=== PATIENT | male | born 1980 | race Caucasian/White ===

== ENCOUNTER 2018-08-15 13:49 | Inpatient (IN) | payer MEDICARE, OTHER ==
--- NOTE | 2018-08-15 14:15 | ED ---
Syncope/Near Syncope - HPI Summary HPI Summary: This pt is a 38 y/o male presenting to [facility] c/o witnessed syncopal episode today. Pt reports he had woken up to take his son to speech therapy today. The next thing he notes he was sitting down on his bed. [facility] who no longer works there. He states he was confused and disoriented. Currently pt still feels he is "on the verge of passing out," lightheaded, with dry mouth, and very anxious. He describes "feeling out of it." Denies headache. He takes medications for pain, psych, and cholesterol (Atorvastatin). - History Of Current Complaint Chief Complaint: EDNeurologicalDeficit Hx Obtained From: Patient Onset/Duration: Sudden Onset Context: Witnessed, Loss Of Consciousness Aggravating Factor(s): Nothing Alleviating Factor(s): Nothing Associated Signs And Symptoms: Lightheadedness, Other - POSITIVE: anxious, dry mouth, confusion. NEGATIVE: headache. - Allergies/Home Medications Allergies/Adverse Reactions: Allergies Allergy/AdvReac Type Severity Reaction Status Date / Time No Known Allergies Allergy Verified 08/15/18 18:14 Home Medications: Home Medications Atorvastatin* [Lipitor*] 20 mg PO DAILY 08/15/18 [History Confirmed 08/15/18] Cetirizine* [ZyrTEC 10 MG TAB*] 10 mg PO BEDTIME 08/15/18 [History Confirmed 09/28] Cyclosporine 0.05% OPHTH (NF) [Restasis 0.05% OPHTH] 1 drop BOTH EYES BID [History Confirmed 08/15/18] DULoxetine DR CAP* [Cymbalta CAP*] 30 mg PO BEDTIME 08/15/18 [History Confirmed 08/15/18] DULoxetine DR CAP* [Cymbalta CAP*] 60 mg PO BEDTIME 08/15/18 [History Confirmed 08/15/18] Methylphenidate TAB* [Ritalin TAB*] 20 mg PO DAILY 08/15/18 [History Confirmed 08/15/18] Oxybutynin TAB* [Ditropan TAB*] 15 mg PO TID 08/15/18 [History Confirmed ] Prazosin CAP* [Minipress CAP*] 20 mg PO DAILY 08/15/18 [History Confirmed ] QUEtiapine TAB* [Seroquel 300 MG TAB*] 150 mg PO BEDTIME 08/15/18 [History Confirmed 08/15/18] SUMAtriptan TAB* [Imitrex TAB*] 100 mg PO SEE INSTRUCTIONS PRN 08/15/18 [ History Confirmed 08/15/18] PMH/Surg Hx/FS Hx/Imm Hx Endocrine/Hematology History: Denies: Hx Diabetes Cardiovascular History: Reports: Hx Hypercholesterolemia Musculoskeletal History: Reports: Hx Back Problems - low back injury, Other Musculoskeletal History - cervical spondylosis Neurological History: Reports: Other Neuro Impairments/Disorders - TBI Psychiatric History: Reports: Hx Post Traumatic Stress Disorder Infectious Disease History: No Infectious Disease History: Denies: Traveled Outside the [place] in Last 30 Days - Family History Known Family History: Negative: Cardiac Disease, Hypertension - Social History Alcohol Use: Rare Substance Use Type: Reports: None Smoking Status (MU): Never Smoked Tobacco Review of Systems Negative: Fever, Chills ENT: Other - POS: dry mouth Neurological: Other - POS: confusion, lightheadedness Positive: Syncope. Negative: Headache Positive: Anxious All Other Systems Reviewed And Are Negative: Yes Physical Exam - Summary Physical Exam Summary: VITAL SIGNS: Reviewed. GENERAL: Patient is a well-developed and nourished male who is lying comfortable in the stretcher. Patient is not in any acute respiratory distress. HEAD AND FACE: No signs of trauma. No ecchymosis, hematomas or skull depressions. No sinus tenderness. EYES: PERRLA, EOMI x 2, No injected conjunctiva, no nystagmus. EARS: Hearing grossly intact. Ear canals and tympanic membranes are within normal limits. MOUTH: Oropharynx within normal limits. NECK: Supple, trachea is midline, no adenopathy, no JVD, no carotid bruit, no c- spine tenderness, neck with full ROM. CHEST: Symmetric, no tenderness at palpation LUNGS: Clear to auscultation bilaterally. No wheezing or crackles. CVS: Regular rate and rhythm, S1 and S2 present, no murmurs or gallops appreciated. ABDOMEN: Soft, non-tender. No signs of distention. No rebound no guarding, and no masses palpated. Bowel sounds are normal. EXTREMITIES: FROM in all major joints, no edema, no cyanosis or clubbing. NEURO: Alert and oriented x 3. No acute neurological deficits. Speech is normal and follows commands. SKIN: Dry and warm GCS: 15 Triage Information Reviewed: Yes Vital Signs On Initial Exam: Initial Vitals Temp Pulse Resp BP Pulse Ox 97.9 F 80 20 138/79 97 08/15/18 13:55 08/15/18 13:55 08/15/18 13:55 08/15/18 13:55 08/15/18 13:55 Vital Signs Reviewed: Yes Diagnostics - Vital Signs Vital Signs Temp Pulse Resp BP Pulse Ox 08/15/18 13:55 97.9 F 80 20 138/79 97 - Laboratory Result Diagrams: 08/15/18 14:17 08/15/18 14:17 Lab Statement: Any lab studies that have been ordered have been reviewed, and results considered in the medical decision making process. - Radiology Chest XR Radiology Interpretation Completed By: Radiologist Summary of Radiographic Findings: IMPRESSION: No evidence for acute intrathoracic disease. Dr. Hernández has reviewed this report. Brain MRI Radiology Interpretation Completed By: Radiologist Summary of Radiographic Findings: Small acute ischemic infarct at the RIGHT thalamus. ED physician reviewed radiology report. - CT Brain CT CT Interpretation Completed By: Radiologist Summary of CT Findings: IMPRESSION: No evidence for acute intracranial abnormality. Dr. Hernández has reviewed this report. - EKG 14:11 Cardiac Rate: NL - at 78 bpm EKG Rhythm: Sinus Rhythm Summary of EKG Findings: No ST elevations. National Institutes Of Health - NIH Scale Level of Consciousness: Alert/Keenly Responsive Ask Patient the Month and His/Her Age: Both Correct Ask Pt to Open/Close Eyes and Internal Review And Audit Compliance/Release Non-Paretic Hand: Both Correctly Best Gaze (Only Horizontal Eye Movement): Normal Visual Field Testing: No Visual Loss Facial Paresis-Pt to Smile & Close Eyes or Grimace Symmetry: Normal/Symmetrical Motor Function - Right Arm: No Drift-Holds 10 Seconds Motor Function - Left Arm: No Drift-Holds 10 Seconds Motor Function - Right Leg: No Drift-Holds 10 Seconds Motor Function - Left Leg: No Drift-Holds 10 Seconds Limb Ataxia-Must be out of Proportion to Weakness Present: Absent Sensory (Use Pinprick to Test Arms/Legs/Trunk/Face): Normal Best Language (Describe Picture, Name Items): No Aphasia Dysarthria (Read Several Words): Normal Extinction and Inattention: No Abnormality Total Score: 0 Course/Dx Assessment/Plan: Patient is a 38-year-old male who presents to the patient department with a chief complaint of not feeling well and having a syncopal episode. Initially the physical exam the patient has no neurological focal deficits. The NIH score is equal to 0, and the [place] Coma Scale is equal to 15. Test results without any significant abnormality except for creatinine 1.26 , glucose 111 and magnesium 1.8. The patient was given magnesium by mouth. Troponin is 0.00. Head CT negative for an acute intracranial pathology. EKG shows normal sinus rhythm without any ST elevation. Chest x-ray impression: no evidence for acute intrathoracic disease. I discussed his case with Dr. Akers recommends for the patient to get an MRI of the brain. Brain MRI impression: Small acute ischemic infarct at the right thalamus. At this point I discussed again the case with Dr. Akers who recommends for the patient to get aspirin and Plavix. He reports that the patient is not a candidate for TPA since the patients NIH score is equal to 0. At this time I discussed my physical exam and findings with Dr. Brink from the hospital services was accepted the patient for admission. The patient is hemodynamically stable alert and oriented 3. - Diagnoses Provider Diagnoses: Ischemic cerebrovascular accident (CVA) - Physician Notifications Discussed Care of Patient With: Markie Akers Time Discussed With Above Provider: 16:08 Instructed by Provider To: Other - Order an MRI. Dr. Akers or Dr. Russell will consult either tonight or tomorrow. At 16:[address] Brink who will come down for a consult. At 17:[address] Akers who said the pt is not a TPA candidate due to his NIH of 0. He will come to the ED to consult the pt. At 18: 05 Dr. Brink accepts for admission. - Critical Care Time Critical Care Time: 75-104 min - CCT is exclusive of separately billable procedures. Discharge - Sign-Out/Discharge Documenting (check all that apply): Patient Departure - Admit Patient Received Moderate/Deep Sedation with Procedure: No - Discharge Plan Condition: Stable Disposition: ADMITTED TO [facility] Referrals: Melinda Felix [Primary Care Provider] - - Billing Disposition and Condition Condition: STABLE Disposition: Admitted to [facility] - Attestation Statements Document Initiated by Scribe: Yes Documenting Scribe: Uma Campbell Provider For Whom Scribe is Documenting (Include Credential): Margarito Hernández MD Scribe Attestation: I, Uma Campbell, scribed for Margarito Hernández MD on 08/15/18 at 1848. Scribe Documentation Reviewed: Yes Provider Attestation: The documentation as recorded by the yuneUma accurately reflects the service I personally performed and the decisions made by me, Margarito Hernández MD Status of Scribe Document: Viewed
[2018-08-15 14:26] LABS: ABS Basophils 0 10^3/ul (0-0.2); ABS Eosinophils 0.1 10^3/ul (0-0.6); ABS Lymphocytes 1.7 10^3/ul (1.0-4.8); ABS Monocytes 0.5 10^3/ul (0-0.8); ABS Neutrophils 3.8 10^3/ul (1.5-7.7); ABS Nucleated RBC 0 10^3/ul; Hematocrit 44 % (36-46); Hemoglobin 14.4 g/dL (14.0-18.0); Lymphocyte % 27.8 %; Mean Corpuscular HGB Conc 33 g/dL (31-36); Mean Corpuscular Hemoglobin 30 pg (27-31); Mean Corpuscular Volume 90 fL (80-94); Mean Platelet Volume 8.2 fL (7.4-10.4); Nucleated Red Blood Cells % 0.1; Platelet Count 188 10^3/uL (150-450); Red Blood Count 4.84 10^6 /uL (4.18-5.48); Red Cell Distribution Width 14 % (10.5-15)
[2018-08-15 14:42] LABS: ALT 28 U/L (7-52); AST 25 U/L (13-39); Albumin 4.3 g/dL (3.2-5.2); Albumin/Globulin Ratio 1.6 (1-3); Alkaline Phosphatase 54 U/L (34-104); Anion Gap 7 mmol/L (2-11); BUN/Creatinine Ratio 12.7 (8-20); Blood Urea Nitrogen 16 mg/dL (6-24); CO2 Carbon Dioxide 27 mmol/L (22-32); Calcium 9.4 mg/dL (8.6-10.3); Chloride 103 mmol/L (101-111); EGFR African American 77.1 (>60); EGFR Non-African American 63.7 (>60); Globulin 2.7 g/dL (2-4); Glucose 108 mg/dL (70-100); Magnesium 1.8 mg/dL (1.9-2.7); Sodium 137 mmol/L (135-145)
[2018-08-15 14:46] LABS: BNP 9 pg/mL (<=100)
[2018-08-15 15:13] LABS: Alcohol < 10 mg/dL (<10)
[2018-08-15] MEDS ORDERED: NS 0.9% 1000 ML** 1,000 ML IV ONE (15:21)
[2018-08-15] MEDS ORDERED: Magnesium Oxide TAB* 400 MG PO ONE (15:21)
[2018-08-15 17:12] LABS: Urine Appearance Clear; Urine Bilirubin Negative (Negative); Urine Blood Negative (Negative); Urine Color Straw; Urine Glucose Negative (Negative); Urine Ketones Negative (Negative); Urine Nitrite Negative (Negative); Urine Protein Negative (Negative); Urine Specific Gravity 1.003 (1.010-1.030); Urine Urobilinogen Negative (Negative)
[2018-08-15 17:23] LABS: Barbiturates Urine Screen None Detected (None Detect); Benzodiazepine Urine Screen None Detected (None Detect); Urine Cannabinoids Screen None Detected (None Detect)
[2018-08-15] MEDS ORDERED: Aspirin 81 mg CHEW TAB* 81 MG TAB.CHEW PO ONE (17:57)
[2018-08-15] MEDS ORDERED: Clopidogrel TAB* 75 MG PO ONE (17:57)
[2018-08-15] MEDS ORDERED: Magnesium Sulfate 1 GM IV* 1 GM/100 ML BAG IV ONE (18:35)
[2018-08-15] MEDS ORDERED: Iohexol 350* (CONTRAST) 500 ML MDV IV ONE (19:15)
--- NOTE | 2018-08-15 19:53 | CONS ---
NEUROLOGY CONSULTATION NOTE: DATE OF CONSULT: 08/15/18 CONSULTING PROVIDER: Dr. Hernández. REASON FOR CONSULT: Transient amnesia. CHIEF COMPLAINT: Transient memory problem. HISTORY OF PRESENT ILLNESS: Mr. Bony Noel is a 38-year-old right-handed man who is a , who has a history of low testosterone and is on testosterone injection every 10 days for over 1 year; ADHD, on methylphenidate, who presented to [facility] ED via walk-in as his drove him to the hospital for a transient episode of amnesia. The patient was in normal state of health this morning. He was last known well at 1 p.m. He was getting his kids ready to go to a speech pathology appointment. The patient got the kids ready, had lunch, went into the room to change when suddenly he came out not feeling well. He told his spouse that he is not sure what he did the last 20 to 30 minutes. His was trying to see what was wrong and he was not responding for approximately 20 seconds. He was checking his carotids to make sure there was blood flow going to the brain. He felt confused. His spouse then immediately put him in the car and drove him to the hospital. The patient does not recall walking into the hospital, but then recalls everything else following. For instance, he was evaluated by Dr. Hernández and Dr. Brink and he remembers them. He feels completely normal. He never complained of headaches, visual disturbance, slurred speech, focal weakness or paresthesias. He denied any double vision or tinnitus. NIH Stroke Scale is 0. According to his spouse , his symptoms seemed to have resolved. The spouse was worried about some fluctuation in heart rate over the last hour, but his heart rate is currently in the mid 70s. PAST MEDICAL HISTORY: Testosterone insufficiency, ADHD, posttraumatic stress disorder, depression, chronic low back and lower extremity pain. PAST SURGICAL HISTORY: Left shoulder surgery. MEDICATIONS: 1. Cetirizine 10 mg p.o. at bedtime. 2. Cyclosporine drop 1 drop both eyes b.i.d. 3. Prazosin 20 mg p.o. daily. 4. Quetiapine 150 mg p.o. at bedtime. 5. Oxybutynin 15 mg p.o. t.i.d. 6. Atorvastatin 20 mg p.o. daily. 7. Methylphenidate 20 mg daily. 8. Sumatriptan 100 mg p.o. as needed. 9. Duloxetine 60 mg p.o. at bedtime. FAMILY HISTORY: No family history of stroke or seizures. SOCIAL HISTORY: The patient is . He has 2 children. He is retired as a war . He takes care of his children at home. He denied any tobacco or alcohol use. REVIEW OF SYSTEMS: A 14-point review of systems was obtained and otherwise negative except for what was mentioned in the HPI. PHYSICAL EXAM: Vitals: Temperature of 97.9, heart rate of 85, respiratory rate of 12, oxygen saturation of 96%, blood pressure of 132/95. General: Well- nourished, well-developed man, in no acute distress, alert, cooperative, in no apparent distress. Head: Normocephalic without obvious abnormality. Eyes: Conjunctivae/corneas are clear. Neck is supple and symmetrical. Lungs are clear to auscultation bilaterally. Cardiovascular: Regular rate and rhythm with normal S1, S2. Extremities: Normal range of motion with no cyanosis. Skin: No skin lesions or lacerations. Psych: Affect is broad and normal mood. Neurological Examination: Awake, alert, and oriented to person, place, time, and general circumstances. Speech and language including expression, naming, and repetition were assessed and found to be normal. Cranial Nerves: Normal confrontation bilaterally. Pupils are mid range and reactive to light. Normal consensual response. Extraocular muscles are intact. Sensation is intact on the forehead, cheeks, and jaw region bilaterally. There is no facial droop. He is able to hear throughout the history process. Symmetrical palatal elevation. Normal strength against resistance. Tongue is symmetrical and midline with no atrophy or fasciculation. Motor Examination: No abnormal movements. No pronator drift. 5/5 strength in the upper and lower extremities. Reflexes: Right/left, brachioradialis 2/2, biceps 2/2, triceps 2/ 2, patella 2/2, ankle 2/2, plantar flexor/flexor. Sensation is intact to light touch throughout. Normal proprioception at the great toes bilaterally. Coordination: Normal [id number] and rapid alternating movements. Gait and station: Narrow based, normal stance and gait. No ataxia. ASSESSMENT: Mr. Bony Noel is a 38-year-old man, who presented with transient amnesia. The patient was found to have right thalamic stroke. 1. Thalamic amnesia related to a small vessel ischemic stroke most likely due to lacunar syndrome involving the thalamogeniculate vascular territory. The risk factors for stroke include: methylphenidate as well as testosterone injection that he gets every 10 days. However, medication related stroke should be a diagnosis of exclusion. A PFO, hypercoagulable state, cardiac arrhythmia, and paradoxical emboli should all be excluded. NIH Stroke Scale currently 0. He would have never been a candidate for IV tPA given that his NIH is 0. We will evaluate for large-vessel occlusion, but I highly doubt that he has any LVO given he is currently asymptomatic. RECOMMENDATIONS: Please obtain a CTA head and neck to evaluate for any narrowing or stenosis or possible vertebral dissection given the patient does have history of trauma in the past, but no recent trauma. Please start the patient on both aspirin and Plavix for a total of 30 days. Discontinue Plavix on 09/14/18. I agree with high-intensity statin therapy with atorvastatin 80 mg daily. Please allow permissive hypertension and treat only for systolic blood pressure above 220 mmHg. Obtain a venous ultrasound of the lower extremity to check for any DVTs. Obtain a transthoracic echo with bubble study to check for PFO. If positive, then he may need an MRV/CTV of the pelvis to check for proximal DVTs. He will need a hypercoagulable panel, which can be done as an outpatient. The following medications should be discontinued: Testosterone therapy, methylphenidate, and sumatriptan. The patient should not be on sumatriptan following his stroke. PT, OT, WEB MACHINE TENDER are not indicated given the patient is currently asymptomatic. VTE prophylaxis with heparin 5000 units subcutaneous every [address] Russell will be covering the neurology service starting tomorrow. I will sign out to him. TIME SPENT: 70 minutes was spent obtaining history, examining the patient, counseling regarding secondary stroke prevention which he should discontinue medications that were discussed, and discussing the treatment plan as mentioned above. I answered the patient and his spouse's questions to the best of my ability. [id number]/[facility] #: [id number] ADDENDUM: If not yet obtained, please check ESR and CRP to evaluate for vasculitis as the cause for stroke given his age and has chronic history of headaches. ZULMA
[2018-08-15] MEDS ORDERED: DULoxetine DR CAP* 60 MG CAP.DR PO SCH (21:00)
[2018-08-15] MEDS: QUEtiapine TAB* 300 MG PO SCH (22:41)
[2018-08-15] MEDS: Cetirizine* 10 MG TAB PO SCH (22:41)
[2018-08-15] MEDS: Prazosin CAP* 5 MG PO SCH (22:42)
[2018-08-15] MEDS: CMCS: Cyclosporine 0.05% OPHTH (NF) 0.4 ML VIAL BOTH EYES SCH (22:42)
[2018-08-15] MEDS: Atorvastatin* 80 MG TAB PO SCH (22:42)
[2018-08-15] MEDS: Heparin VIAL(*) 5000 UNITS/ML VIAL (FIVE THOUSAND) SUBCUT SCH (22:42)
[2018-08-15] MEDS: DULoxetine DR CAP* 30 MG CAP.DR PO SCH (22:42)
--- NOTE | 2018-08-16 02:44 | HP ---
HISTORY AND PHYSICAL: DATE OF ADMISSION: 08/15/18 ADMITTING PROVIDER: Jace Brink MD PRIMARY CARE PROVIDER: Melinda Felix of [facility]. CHIEF COMPLAINT: Disorientation, confusion, blurred vision. 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 He was in his usual state of health. He around 1:30 p.m. on the day of admission, he ran out to start the car as they had an appointment along with his to go to his son's speech therapy meeting. He came back inside and found him in the bedroom saying that he "did not feel right." He seemed to be feeling his pulse at his neck and was not answering her questions about what specifically was wrong. He picked up the phone to call his doctor and instead started to ask for the name of his old physical therapist back in [place]. He has no recollection of many of these events during this time period. His took him to the [facility] Emergency Room. He again had some episodes where he did not quite feel right with some blurred vision. He, of note, frequently gets panic attacks with hazy vision, headaches, and some nausea, but this did not quite exactly feel like this event. Currently, he feels more tired than usual and again feels a little bit dizzy. Here he had a CT of the head which showed no evidence for acute intracranial abnormality. A chest x-ray, which demonstrated no evidence for acute intrathoracic disease. An EKG, which demonstrated normal sinus rhythm, no ischemic changes. His was concerned that his heart rate seemed to jump up from 70s to as high as 99 on occasion. His lab work has been relatively unremarkable. His creatinine is slightly elevated at 1.26 though no previous baseline. Toxicology screen was negative. Serum alcohol screen was negative. Magnesium was a bit low at 1.8. On further history, they state that about 2 weeks ago, he developed some erythema and swelling in his right lower extremity below the knee that resolved overtime. He does not know exactly what happened, but surmises that he may have hit it against the hitch of his truck, but states that he does not really know for sure. He was referred to the hospitalist service for admission given his confusion. The MRI of his brain was pending, and after Dr. Hernández will start with Dr. Akers. The MRI of the brain has since returned to show a small acute ischemic infarct at the right thalamus. Notably, his NIH score is 0 and he was not a candidate for tPA given the low NIH score and also now outside of 4-1/2 hours. Of note, he recently had some medication changes. He changed from omeprazole to ranitidine and started Lipitor 20 mg approximately 2 weeks ago. He has been on his Seroquel and Cymbalta for some time. He also takes hydroxyzine p.r.n. for panic attacks , but not recently. PAST MEDICAL HISTORY: Include: 1. Traumatic brain injury. 2. PTSD. 3. Chronic migraines. 4. Intermittent chest tightness and shortness breath felt secondary to exposure to burn pits in service. Symptoms also include postnasal drip and congestion and pins and needles in the morning. MEDICATIONS: He actually has been taking testosterone injection every 10 days for over a year. ALLERGIES: No known drug allergies. FAMILY HISTORY: His mother, father, one older brother and 2 older sisters are all alive, but he is estranged from all of them and cannot relate any medical history. SOCIAL HISTORY: The patient is retired and takes care of his children. He is retired from the . He was a marine. He is a never smoker. Denies drug use. He formerly drank heavily up to a bottle of whiskey a day after he returned from deployment, but he is completely abstaining since his children were born. His medical surrogate is his Emily Noel. REVIEW OF SYSTEMS: A complete 14-point review of systems is negative except as per HPI. Denies abdominal pain, nausea, vomiting, diarrhea, constipation, hematochezia, melena, recent travel, skin rashes, trouble swallowing, choking on food, fever or chills. PHYSICAL EXAMINATION GENERAL APPEARANCE: In no acute distress. VITAL SIGNS: 97.9, pulse rate initially 92, and is currently 75, respiratory rate 12 to 27, satting 96% on room air, blood pressure initially 138/79. HEENT: Normocephalic, atraumatic. Pupils equally round and reactive to light. Extraocular motions intact. No scleral icterus. Moist mucous membranes. NECK: Supple. No cervical lymphadenopathy. LUNGS: Clear to auscultation bilaterally with no wheezing, rales or rhonchi. CARDIOVASCULAR: Regular rate and rhythm. No murmurs, rubs, or gallops. ABDOMEN: Soft, nontender, nondistended. No rebound, no guarding. No Gresham's sign. EXTREMITIES: Warm and well perfused. No peripheral edema, but he does have a small lump on his anterior right mejia and again lower down superior to the ankle that is slightly erythematous, but nontender. NEUROLOGIC: Cranial nerves II through XII intact. Bxtkby-zw-wjdg intact and quite fast. Negative Romberg and no pronator drift. Money Counter strength, biceps, triceps all 5/5. Hip flexion, dorsiflexion, plantarflexion 5/5. No numbness. Sensation intact. Gait is steady. Ambulates without difficulty. DIAGNOSTIC STUDIES/LAB DATA: White count 6.0, hemoglobin 14.4, platelets 188. Sodium 137, potassium 4.0, chloride 103, carbon dioxide 27, BUN 16, creatinine 1.26, glucose 108, lactic acid 1.3, calcium 9.4, magnesium 1.8. Total bili 0.6 , AST 25, ALT 28, alk phos 54. Ammonia 52. Troponin 0.00. BNP 9. Total protein 7.0, albumin 4.3. TSH 1.40. Urinalysis: Specific gravity is slightly low at 1.003, otherwise within normal limits. Toxicology negative for opiates, barbiturates, phencyclidine, amphetamines, benzodiazepine, cocaine, cannabinoids. Serum alcohol less than 10. Imaging: CT of the head noncontrast, no acute process. Chest x-ray demonstrated no evidence for acute intrathoracic disease. MRI of the brain noncontrast demonstrated a small acute ischemic infarct of the right thalamus. ASSESSMENT AND PLAN: Bony Noel is a 38-year-old man with past medical history of post-traumatic stress disorder, traumatic brain injury, hyperlipidemia, recently started on Lipitor, chronic migraine, attention deficit disorder, panic attacks, who presented with approximately 30 minutes of episode of confusion, disorientation and has intermittent residual sensation of dizziness. His NIH score is 0. Acute right ischemic thalamic stroke. Appreciate evaluation by Dr. Akers of Neurology. I am ordering a transthoracic echocardiogram with bubble study to rule out patent foramen ovale. I am also ordering a DVT ultrasound of the right lower extremity. I have had a chance to discuss with Dr. Akers, and he is ordering CT of the head and neck along with the above studies as mentioned. We will continue exam adding on a fasting lipid profile in the morning, increasing his Lipitor from recently started 20 to 80, until we find out more information from the lipid panel and I will request records from Melinda Felix of the [place], although likely he will be discharged before actually he received those. He is status post 75 mg of Plavix in the emergency room and aspirin 324 mg. aspirin 81 mg daily and Plavix 75 mg daily permissive hypertension. Initially, he was not on any antihypertensives, though he was on prazosin for posttraumatic stress disorder. Of note, he has again no focal neurological deficits, really only some intermittent dizziness and some episode of amnesia and disorientation. For his posttraumatic stress disorder, I am continuing his Seroquel 150 mg q.h.s., his Cymbalta 90 mg q.h.s., and his prazosin 20 mg q.h.s. For his benign prostate hypertrophy, continue his oxybutynin. For his attention deficit disorder, continue his Ritalin. Of note, Dr. Akers thinks that his testosterone injections may have increased his risk for a stroke and recommended cessation of those. We will try to get records from Elvira's office. He is a full code. He passed a swallow evaluation. I am going to continue a heart- healthy diet. For his first problem cerebrovascular accident, getting an echo with bubble study as mentioned to rule out patent foramen ovale and clots. [id number]/[facility] #: [id number] [facility]
[2018-08-16] MEDS: Heparin VIAL(*) 5000 UNITS/ML VIAL (FIVE THOUSAND) SUBCUT SCH ×3 (05:22→23:48)
[2018-08-16 05:31] LABS: BUN/Creatinine Ratio 12.3 (8-20); Calcium 8.8 mg/dL (8.6-10.3); EGFR African American 94.1 (>60); EGFR Non-African American 77.8 (>60); HDL Cholesterol 29.8 mg/dL; Potassium 3.6 mmol/L (3.5-5.0)
[2018-08-16 07:39] LABS: Magnesium 2.3 mg/dL (1.9-2.7)
[2018-08-16] MEDS: Oxybutynin XL TAB* 5 MG PO SCH (08:44)
[2018-08-16] MEDS: CMCS: Cyclosporine 0.05% OPHTH (NF) 0.4 ML VIAL BOTH EYES SCH ×2 (08:44→20:22)
[2018-08-16] MEDS: Clopidogrel TAB* 75 MG PO SCH (08:44)
[2018-08-16] MEDS: Aspirin 81 mg CHEW TAB* 81 MG TAB.CHEW PO SCH (08:44)
[2018-08-16] MEDS ORDERED: Methylphenidate TAB* 10 MG PO SCH (09:00)
--- NOTE | 2018-08-16 10:52 | PN ---
NEUROLOGICAL FOLLOWUP: DATE OF SERVICE: 08/16/18 PATIENT OF: Dr. Brink. This is a neurological followup of Dr. Akers's consult. HISTORY: Mr. Molina has had a right thalamic stroke by MRI scan, even though his symptoms had resolved and there had been an episode of confusion and feeling poorly for less than half an hour. He has had no prior strokes or focal neurological deficits. He has a history of ADHD, posttraumatic stress disorder, depression, migraines, testosterone insufficiency, low back pain. He is status post left shoulder surgery. MEDICATIONS: Medicines at home included: 1. Duloxetine 60 mg daily. 2. Sumatriptan 100 mg p.r.n. 3. Methylphenidate 20 mg daily. 4. Atorvastatin 20 mg daily. 5. Quetiapine 150 mg daily. 6. Prazosin 20 mg daily. 7. Cetirizine 10 mg at bedtime. PHYSICAL EXAMINATION: On exam today, temperature 98, pulse 69, respiratory rate 16, blood pressure 135/73. He is alert and oriented with normal speech and comprehension. Cranial nerves II through XII intact. Motor exam revealed normal tone, strength, coordination. Gait normal. Negative Romberg. Negative pronator drift. Reflexes are 2 and equal. Chest: Clear. Cardiovascular: Regular rate and rhythm. Abdomen: Soft with positive bowel sounds. DIAGNOSTIC STUDIES/LAB DATA: Describes the MRI scan above, which showed a right thalamic infarct, which I reviewed his head CTA did not show any problems neither that his venous Doppler study of his legs. He had a normal neck CTA as well. He had a negative CT, CTA. His MRI scan as described showed a right thalamic stroke. His LDL is 65. I discussed with him and Dr. Brink that it is possible that his medications, namely his testosterone and methylphenidate could have played a role in causing stroke, but this is diagnosis of exclusion. He definitely should not be on those meds and he should not be on his sumatriptan. However, we need to make sure there is no other cause to this end. He needs an echo while he is in the hospital and if this is normal, he will need a TSERING. He should be monitored for AFib for the next day or 2 and then he should if the workup is negative today have a loop recorder to monitor long-term for atrial fibrillation. He also needs a hypercoagulable workup. He is on the aspirin and Plavix and maintained on the statin already. Thank you for sharing his case. [id number]/[facility] #: [id number] ZULMA
[2018-08-16] MEDS: Atorvastatin* 80 MG TAB PO SCH (16:54)
--- NOTE | 2018-08-16 19:42 | PN ---
Subjective Date of Service: 08/16/18 Interval History: no acute events overnight. Afebrile. Slept well and completely symptom free. No Afib on telemetry. Objective Active Medications: Aspirin (Aspirin 81 Mg Chew Tab*) 81 mg PO DAILY [facility] Last Admin: 08/16/18 08:44 Dose: 81 mg Atorvastatin Calcium (Lipitor*) 80 mg PO 1700 [facility] Last Admin: 08/16/18 16:54 Dose: 80 mg Cetirizine HCl (Zyrtec*) 10 mg PO BEDTIME [facility]; Protocol Last Admin: 08/15/18 22:41 Dose: 10 mg Clopidogrel Bisulfate (Plavix Tab*) 75 mg PO DAILY [facility] Last Admin: 08/16/18 08:44 Dose: 75 mg Cyclosporine (Restasis 0.05% [facility]) 1 drop BOTH EYES BID [facility]; Protocol Last Admin: 08/16/18 08:44 Dose: 1 drop Duloxetine HCl (Cymbalta Cap*) 90 mg PO BEDTIME [facility] Last Admin: 08/15/18 22:42 Dose: 90 mg Heparin Sodium (Porcine) (Heparin Vial(*)) 5,000 units SUBCUT Q8HR [facility] Last Admin: 08/16/18 14:41 Dose: 5,000 units Oxybutynin Chloride (Ditropan Xl Tab*) 15 mg PO DAILY [facility] Last Admin: 08/16/18 08:44 Dose: 15 mg Prazosin HCl (Minipress Cap*) 20 mg PO 2100 [facility] Last Admin: 08/15/18 22:42 Dose: 20 mg Quetiapine Fumarate (Seroquel Tab*) 150 mg PO BEDTIME [facility] Last Admin: 08/15/18 22:41 Dose: 150 mg Vital Signs - 8 hr 08/16/18 15:19 Temperature 98.1 F Pulse Rate 66 Respiratory 16 Rate Blood Pressure 116/65 (mmHg) O2 Sat by Pulse 99 Oximetry Oxygen Devices in Use Now: None Appearance: NAD Eyes: No Scleral Icterus Ears/Nose/Mouth/Throat: NL Teeth, Lips, Gums Neck: NL Appearance and Movements; NL JVP, Trachea Midline Respiratory: Symmetrical Chest Expansion and Respiratory Effort, Clear to Auscultation Cardiovascular: NL Sounds; No Murmurs; No JVD, RRR Abdominal: NL Sounds; No Tenderness; No Distention, No Hepatosplenomegaly Extremities: No Edema Skin: No Rash or Ulcers Neurological: Alert and Oriented x 3, NL Sensation, NL Gait, NL Muscle Strength and Tone, - Nutrition: Taking PO's Result Diagrams: 08/15/18 14:17 08/16/18 04:50 Additional Lab and Data: Laboratory Results - last 24 hr 08/15/18 08/16/18 14:17 04:50 Sodium 140 Potassium 3.6 Chloride 107 Carbon Dioxide 27 Anion Gap 6 BUN 13 Creatinine 1.06 Est GFR ( Amer) 94.1 Est GFR (Non-Af Amer) 77.8 BUN/Creatinine Ratio 12.3 Glucose 89 Hemoglobin A1c 5.2 Calcium 8.8 Magnesium 2.3 Triglycerides 75 Cholesterol 110 LDL Cholesterol 65 HDL Cholesterol 29.8 Assess/Plan/Problems-Billing Assessment: 38 yo male PMH PTSD/TBI/ADD, BPH, panic attacks presenting with disorientation, transient amnesia and blurred vision. Found to have acute small right thalamic stroke. - Patient Problems (1) Right thalamic stroke Current Visit: Yes Status: Acute Code(s): I63.9 - CEREBRAL INFARCTION, UNSPECIFIED SNOMED Code(s): 636714957 Comment: Appreciate neuro recs. Continue atorvastatin 80mg daily. Continue aspirin 81mg, Continue plavix 75mg for 30 days. Needs to stay for bubble study TTE and if clear then Dr. Russell recommending TSERING as outpatient. tele: no evidence of Afib. Recommendation for loop recorder as outpatient. NIH was 0 so not TPA candidate. cessation of testosterone, ritalin and sumitriptan. (2) PTSD (post-traumatic stress disorder) Current Visit: Yes Status: Acute Code(s): F43.10 - POST-TRAUMATIC STRESS DISORDER, UNSPECIFIED SNOMED Code(s): 22209921 Comment: continue seroquel 150mg and prazosin 20mg qhs. (3) DVT prophylaxis Current Visit: Yes Status: Acute Code(s): EFD2288 - SNOMED Code(s): 776890540 Comment: heparin 5000mg TID Status and Disposition: medicine, change to inpatient as still needs bubble study ECHO.
[2018-08-16] MEDS: QUEtiapine TAB* 300 MG PO SCH (20:20)
[2018-08-16] MEDS: Cetirizine* 10 MG TAB PO SCH (20:21)
[2018-08-16] MEDS: Prazosin CAP* 5 MG PO SCH (20:21)
[2018-08-16] MEDS: DULoxetine DR CAP* 30 MG CAP.DR PO SCH (20:22)
[2018-08-17] MEDS: Heparin VIAL(*) 5000 UNITS/ML VIAL (FIVE THOUSAND) SUBCUT SCH ×3 (06:20→21:06)
[2018-08-17 06:36] LABS: BUN/Creatinine Ratio 11.9 (8-20); Calcium 9.1 mg/dL (8.6-10.3); EGFR African American 77.1 (>60); EGFR Non-African American 63.7 (>60)
[2018-08-17] MEDS: Clopidogrel TAB* 75 MG PO SCH (08:46)
[2018-08-17] MEDS: Oxybutynin XL TAB* 5 MG PO SCH (08:46)
[2018-08-17] MEDS: Aspirin 81 mg CHEW TAB* 81 MG TAB.CHEW PO SCH (08:46)
[2018-08-17] MEDS: CMCS: Cyclosporine 0.05% OPHTH (NF) 0.4 ML VIAL BOTH EYES SCH ×2 (08:46→21:08)
--- NOTE | 2018-08-17 12:38 | PN ---
Subjective Date of Service: 08/17/18 Interval History: No acute events overnight. Afebrile. No afib on tele. No echo yet. neuro intact, no complaints. Objective Active Medications: Aspirin (Aspirin 81 Mg Chew Tab*) 81 mg PO DAILY [facility] Last Admin: 08/17/18 08:46 Dose: 81 mg Atorvastatin Calcium (Lipitor*) 80 mg PO 1700 [facility] Last Admin: 08/16/18 16:54 Dose: 80 mg Cetirizine HCl (Zyrtec*) 10 mg PO BEDTIME [facility]; Protocol Last Admin: 08/16/18 20:21 Dose: 10 mg Clopidogrel Bisulfate (Plavix Tab*) 75 mg PO DAILY [facility] Last Admin: 08/17/18 08:46 Dose: 75 mg Cyclosporine (Restasis 0.05% [facility]) 1 drop BOTH EYES BID [facility]; Protocol Last Admin: 08/17/18 08:46 Dose: 1 drop Duloxetine HCl (Cymbalta Cap*) 90 mg PO BEDTIME [facility] Last Admin: 08/16/18 20:22 Dose: 90 mg Heparin Sodium (Porcine) (Heparin Vial(*)) 5,000 units SUBCUT Q8HR [facility] Last Admin: 08/17/18 06:20 Dose: 5,000 units Oxybutynin Chloride (Ditropan Xl Tab*) 15 mg PO DAILY [facility] Last Admin: 08/17/18 08:46 Dose: 15 mg Prazosin HCl (Minipress Cap*) 20 mg PO 2100 [facility] Last Admin: 08/16/18 20:21 Dose: 20 mg Quetiapine Fumarate (Seroquel Tab*) 150 mg PO BEDTIME [facility] Last Admin: 08/16/18 20:20 Dose: 150 mg Vital Signs - 8 hr 08/17/18 08/17/18 07:16 08:00 Temperature 98.0 F Pulse Rate 67 Respiratory 16 16 Rate Blood Pressure 112/68 (mmHg) O2 Sat by Pulse 96 Oximetry Oxygen Devices in Use Now: None Appearance: NAD Eyes: No Scleral Icterus Ears/Nose/Mouth/Throat: NL Teeth, Lips, Gums Neck: NL Appearance and Movements; NL JVP, Trachea Midline Respiratory: Symmetrical Chest Expansion and Respiratory Effort, Clear to Auscultation Cardiovascular: NL Sounds; No Murmurs; No JVD, RRR Abdominal: NL Sounds; No Tenderness; No Distention, No Hepatosplenomegaly Extremities: No Edema Skin: No Rash or Ulcers Neurological: Alert and Oriented x 3, NL Sensation, NL Muscle Strength and Tone Nutrition: Taking PO's Result Diagrams: 08/15/18 14:17 08/17/18 05:39 Additional Lab and Data: Laboratory Results - last 24 hr 08/17/18 05:39 Sodium 139 Potassium 4.0 Chloride 106 Carbon Dioxide 28 Anion Gap 5 BUN 15 Creatinine 1.26 H Est GFR ( Amer) 77.1 Est GFR (Non-Af Amer) 63.7 BUN/Creatinine Ratio 11.9 Glucose 82 Calcium 9.1 Assess/Plan/Problems-Billing Assessment: 38 yo male PMH PTSD/TBI/ADD, BPH, panic attacks presenting with disorientation, transient amnesia and blurred vision. Found to have acute small right thalamic stroke. Waiting on ECHO (needed before discharge per Neurology) - Patient Problems (1) Right thalamic stroke Current Visit: Yes Status: Acute Code(s): I63.9 - CEREBRAL INFARCTION, UNSPECIFIED SNOMED Code(s): 906911080 Comment: Appreciate neuro recs. Continue atorvastatin 80mg daily. Continue aspirin 81mg, Continue plavix 75mg for 30 days. Needs to stay for bubble study TTE and if clear then Dr. Russell recommending TSERING as outpatient. tele: no evidence of Afib. Recommendation for loop recorder as outpatient. NIH was 0 so not TPA candidate. cessation of testosterone, ritalin and sumitriptan. (2) PTSD (post-traumatic stress disorder) Current Visit: Yes Status: Acute Code(s): F43.10 - POST-TRAUMATIC STRESS DISORDER, UNSPECIFIED SNOMED Code(s): 57195256 Comment: continue seroquel 150mg and prazosin 20mg qhs. (3) DVT prophylaxis Current Visit: Yes Status: Acute Code(s): UWG1368 - SNOMED Code(s): 557477450 Comment: heparin 5000mg TID Status and Disposition: medicine inpatient as still needs bubble study ECHO per neurology before safe discharge.
[2018-08-17] MEDS: Atorvastatin* 80 MG TAB PO SCH (16:21)
[2018-08-17] MEDS: Prazosin CAP* 5 MG PO SCH (21:04)
[2018-08-17] MEDS: DULoxetine DR CAP* 30 MG CAP.DR PO SCH (21:04)
[2018-08-17] MEDS: QUEtiapine TAB* 300 MG PO SCH (21:05)
[2018-08-17] MEDS: Cetirizine* 10 MG TAB PO SCH (21:06)
[2018-08-18] MEDS: Heparin VIAL(*) 5000 UNITS/ML VIAL (FIVE THOUSAND) SUBCUT SCH ×2 (05:40→14:31)
[2018-08-18 06:27] LABS: BUN/Creatinine Ratio 12.5 (8-20); Calcium 9.5 mg/dL (8.6-10.3); EGFR African American 81.6 (>60); EGFR Non-African American 67.4 (>60); Potassium 3.6 mmol/L (3.5-5.0)
[2018-08-18] MEDS: Aspirin 81 mg CHEW TAB* 81 MG TAB.CHEW PO SCH (08:50)
[2018-08-18] MEDS: Oxybutynin XL TAB* 5 MG PO SCH (08:51)
[2018-08-18] MEDS: Clopidogrel TAB* 75 MG PO SCH (08:51)
[2018-08-18] MEDS: CMCS: Cyclosporine 0.05% OPHTH (NF) 0.4 ML VIAL BOTH EYES SCH (08:51)
--- NOTE | 2018-08-18 10:17 | ECHO ---
Patient: CALI OSBORN [facility] Rec#: [id number] : 1980 Date: 08/18/2018 Age: 38y Height: 193 cm / 76.0 in Weight: 128 kg / 282.1 lbs Sex: M BSA: 2.56 Room#: 432 Admit Date#: 08/15/2018 Type: Inpatient Referring: Jace Brink Reading: Derrick Bass MD Associate Professor Of Surgery: Salena KanRDCS,RDMS Transthoracic Echocardiogram Indication: CVA BP: 100/56 HR: 68 Rhythm: NSR Findings History: SOB, TBI Technical Comments: The study quality is fair. Left Ventricle: The left ventricular chamber size is normal. Mild concentric left ventricular hypertrophy is observed. Left ventricular systolic function is at the lower limits of normal. The estimated ejection fraction is 45-50%. Normal left ventricular diastolic filling is observed. Left Atrium: The left atrial chamber size is normal. Right Ventricle: The right ventricle is not well visualized. Right Atrium: The right atrium is mildly dilated. There is a patent foramen ovale with predominant [id number] shunting. A patent foramen ovale is demonstrated by agitated contrast. Aortic Valve: The aortic valve is trileaflet. Systolic excursion of the aortic valve is normal. There is no evidence of aortic regurgitation. There is no evidence of aortic stenosis. Mitral Valve: There is no evidence of mitral regurgitation. There is no evidence of mitral stenosis. Tricuspid Valve: The tricuspid valve leaflets are normal. There is trace tricuspid regurgitation. No pulmonary hypertension is noted. Pulmonic Valve: The pulmonic valve structure is not well visualized. There is no evidence of pulmonic valve thickening. There is no evidence of pulmonic regurgitation. Pericardium: There is no significant pericardial effusion. Aorta: The aortic root appears normal. There is no dilatation of the aortic arch. Pulmonary Artery: The main pulmonary artery is not well visualized. Venous: The inferior vena cava appears normal in size. There is a greater than 50% respiratory change in the inferior vena cava dimension. Contrast: Intravenous agitated saline contrast was used to assess intracardiac shunting. Images 73 and 74. Summary: There was not any prior study for comparison. Conclusions Mild concentric left ventricular hypertrophy is observed. Left ventricular systolic function is at the lower limits of normal. The estimated ejection fraction is 45-50%. No focal wall motion abnormalities There is a patent foramen ovale with predominant [id number] shunting. A patent foramen ovale is demonstrated by agitated contrast. There is no evidence of aortic stenosis. There is no evidence of mitral regurgitation. There is trace tricuspid regurgitation. No pulmonary hypertension is noted. There is no significant pericardial effusion. Measurements Name Value Normal Range RVIDd (AP) 2D 3.2 cm (0.9 - 2.6) RVDdMajor (2D) 3 cm (2.2 - 4.4) RAd ISD 4CH 5.7 cm (3.4 - 4.9) RA (A4C)W 4.3 cm (2.9 - 4.6) IVSd (2D) 1.2 cm (0.6 - 1) LVPWd (2D) 1.1 cm (0.6 - 1) LVIDd (2D) 4.7 cm (3.6 - 5.4) LVIDs (2D) 3.6 cm - LV FS (2D) 23 % (25 - 45) Aortic Annulus 2.6 cm (1.4 - 2.6) Ao root diameter (2D) 3 cm (2.1 - 3.5) Ascending Ao 2.6 cm (2.1 - 3.4) Aortic arch 2.9 cm (1.8 - 3.4) LA dimension (AP) 2D 3.8 cm (2.3 - 3.8) LAd ISD 4CH 5.7 cm (2.9 - 5.3) LA ISD 4CH W 3.7 cm (2.5 - 4.5) Name Value Normal Range LA ESV BP (A/L) index 23 ml/m2 - Name Value Normal Range MV E-wave Vmax 0.6 m/sec - MV deceleration time 259 msec - MV A-wave Vmax 0.4 m/sec - MV E:A ratio 1.3 ratio - P. vein S-wave Vmax 0.5 m/sec - P. vein D-wave Vmax 0.5 m/sec - P. vein S:D Vmax ratio 1 ratio - P. vein A-wave duration 108 msec - LV septal e' Vmax 0.09 m/sec - LV lateral e' Vmax 0.1 m/sec - LV E:e' septal ratio 7 ratio - LV E:e' lateral ratio 6 ratio - Name Value Normal Range AV Vmax 1.2 m/sec - AV VTI 26 cm - AV peak gradient 6 mmHg - AV mean gradient 3 mmHg - LVOT Vmax 1 m/sec - LVOT VTI 20 cm - LVOT peak gradient 4 mmHg - LVOT mean gradient 2 mmHg - LEONARD Vmax 0.9 m/sec - Name Value Normal Range TR Vmax 2 m/sec - TR peak gradient 16 mmHg - RAP 3 mmHg - RVSP 19 mmHg - IVC diameter 1.6 cm - Name Value Normal Range PV Vmax 0.8 m/sec - PV peak gradient 2.6 mmHg -
--- NOTE | 2018-08-18 12:38 | PN ---
Progress Note - Progress Note Date of Service: 08/18/18 Note: Time spent on discharge including exam of patient, discussion with patient, nurse, CM, review of EMR and preparation of discharge documents is 50 minutes.
[2018-08-18] MEDS ORDERED: Iohexol 350* (CONTRAST) 500 ML MDV IV ONE (13:04)
--- NOTE | 2018-08-18 15:33 | DS ---
CC: Dr. Akers* DISCHARGE SUMMARY: DATE OF ADMISSION: 08/15/18 DATE OF DISCHARGE: 08/18/18 HISTORY OF PRESENT ILLNESS: This is a 38-year-old man presented with a sudden onset of disorientation, confusion, blurred vision. He does not really recall the episode, but is aware of having it. He has not had similar problems before. MRI scan showed a small acute ischemic infarct to the right thalamus. He was seen in consultation by Dr. Akers. His echocardiogram showed a PFO with a right to left shunt. CTA did not show any abdominal/pelvic thrombi. The patient had venous Doppler of the right lower leg, which showed no evidence of thrombus. He did have an injury there and has a small organizing hematoma in the tibial area. His mobility had not really been impaired. Recently, he is relatively sedentary. A factor V Leiden mutation and a prothrombin [id number] mutation tests were sent off and the results are pending at this time. The patient can be considered for a loop recorder implanted to detect possible episodes of atrial fibrillation and/or other significant arrhythmias. He will follow up with Dr. Akers and the [facility]. He will be on aspirin 81 mg indefinitely and clopidogrel for 1 month only. FINAL DIAGNOSES: 1. Right thalamic infarct. 2. Posttraumatic stress disorder. 3. Migraines. DISCHARGE MEDICATIONS: 1. Atorvastatin 80 mg daily at 5 p.m. 2. Aspirin 81 mg daily. 3. Clopidogrel 75 mg daily for 30 days and stop cetirizine 10 mg h.s. 4. Cyclosporine 0.5% of ophthalmic 1 drop both eyes b.i.d. 5. Prazosin 20 mg daily. 6. Quetiapine 150 mg h.s. 7. Oxybutynin 15 mg t.i.d. 8. Duloxetine 90 mg b.i.d. The following medicines have been discontinued: 1. Methylphenidate. 2. Sumatriptan. 3. Testosterone. CONDITION ON DISCHARGE: Improved. DISPOSITION ON DISCHARGE: Discharged home. [id number]/[facility] #: [id number] MTDD
[2018-08-18] MEDS ORDERED: Iohexol 300* (CONTRAST) 10 ML SDV IV ONE (17:00)
[2018-08-18] MEDS: Atorvastatin* 80 MG TAB PO SCH (17:06)
[2018-08-18 17:37] VITALS: BP 145/82
[2018-08-20 16:08] LABS: Factor V Leiden Mutation Negative (Negative); Prothrombin 20210 Mutation Negative (Negative)
== END 2018-08-18 18:50 | disposition home or self-care (01) | DRG 65 ==
LOC: ED 13:49 → MEDTELE 18:12 → OBSVTOIN 19:44
PROVIDERS: ADMIT Internal Medicine; ATTEND Internal Medicine
DX: I63.89 Other cerebral infarction (principal); Q21.1 Atrial septal defect; H53.8 Other visual disturbances; R41.0 Disorientation, unspecified; S80.11XA Contusion of right lower leg, initial encounter; X58.XXXA Exposure to other specified factors, initial encounter; I48.91 Unspecified atrial fibrillation; F43.10 Post-traumatic stress disorder, unspecified; G43.909 Migraine, unspecified, not intractable, without status migrainosus; F98.8 Other specified behavioral and emotional disorders with onset usually occurring in childhood and adolescence; N40.0 Benign prostatic hyperplasia without lower urinary tract symptoms; E78.5 Hyperlipidemia, unspecified; E83.42 Hypomagnesemia; R29.700 NIHSS score 0; E78.00 Pure hypercholesterolemia, unspecified; G45.4 Transient global amnesia; F32.9 Major depressive disorder, single episode, unspecified; G89.29 Other chronic pain; M54.5 Low back pain; Z79.82 Long term (current) use of aspirin; Y92.9 Unspecified place or not applicable; Z87.820 Personal history of traumatic brain injury
CPT/HCPCS: 36415; 70450; 70496; 70498; 70551; 71046; 74177; 80048; 80053; 80061; 80307; 80320; 81003; 81240; 81241; 82140; 83036; 83605; 83735; 83880; 84443; 84484; 85025; 93005; 93306; 99284; A9270-GY; G0480; J1644; Q9967